=== PATIENT | female | born 2000 | race American Indian/Alaskan Native ===

== ENCOUNTER 2020-08-30 01:14 | Emergency (ER) | payer OTHER ==
[2020-08-30 01:31] VITALS: BP 133/66
--- NOTE | 2020-08-30 03:23 | XRay Report ---
EXAMINATION: Right shoulder radiograph, 2 views, 08/30/2020 CLINICAL INFORMATION: Right shoulder pain COMPARISON: None. FINDINGS: There is no evidence of acute fracture or dislocation of the right shoulder. No significant bony degenerative changes are noted. Signer Name: Jodee Rosen MD Signed: 08/30/2020 3:19 AM Workstation Name: [id number]
== END 2020-08-30 04:25 | disposition left against medical advice (07) ==
LOC: ED 01:14
DX: M25.511 Pain in right shoulder (principal); Z53.21 Procedure and treatment not carried out due to patient leaving prior to being seen by health care provider

== ENCOUNTER 2021-01-09 09:18 | Emergency (ER) | payer OTHER ==
[2021-01-09 09:34] VITALS: BP 133/79
--- NOTE | 2021-01-09 09:46 | Emergency Department Report ---
ED Chest Pain HPI - General Chief Complaint: Chest Pain Stated Complaint: CHEST PAIN, JOEL Time Seen by Provider: 01/09/21 09:33 Source: patient Mode of arrival: Ambulatory Limitations: No Limitations - History of Present Illness Initial Comments: 20-year-old -[place] female patient presents with complaints of right sided chest pain starting 3 days ago. She denies any shortness of breath and states the pain worsens with deep inhalation. She rates the pain as a 10/10 in severity. Pain also worsens with touch to the chest. Ibuprofen does relieve the pain. Patient does have children and does frequent heavy lifting. Pain is sharp in nature. She denies any shortness of breath, cough, hemoptysis, leg pain/swelling, recent long travel, or history of cancer. No family history of heart disease per patient. - Related Data Previous Rx's Medication Instructions Recorded Last Taken Type Naproxen 500 mg PO BID PRN #20 tablet 01/09/21 Unknown Rx methocarbamoL [Methocarbamol] 750 mg PO TID PRN #15 tablet 01/09/21 Unknown Rx predniSONE [Deltasone] 20 mg PO BID #4 tab 01/09/21 Unknown Rx Allergies Allergy/AdvReac Type Severity Reaction Status Date / Time No Known Allergies Allergy Verified 01/09/21 09:34 Heart Score - HEART Score History: Slightly suspicious EKG: Normal Age: < 45 Risk factors: No known risk factors Troponin: < normal limit HEART Score: 0 - EKG Read Time Time EKG Completed: 09:38 EKG Read Time: 09:40 ED Review of Systems ROS: Stated complaint: CHEST PAIN, JOEL Other details as noted in HPI Constitutional: denies: chills, diaphoresis, fever, malaise, weakness Respiratory: denies: cough, shortness of breath Cardiovascular: chest pain. denies: palpitations, edema, syncope Endocrine: denies: excessive sweating Gastrointestinal: denies: abdominal pain Musculoskeletal: denies: back pain Neurological: denies: headache Hematological/Lymphatic: denies: swollen glands ED Past Medical Hx - Past Medical History Previous Medical History?: No - Surgical History Past Surgical History?: No - Social History Smoking Status: Never Smoker Substance Use Type: None - Medications Home Medications: Home Medications Medication Instructions Recorded Confirmed Last Taken Type Naproxen 500 mg PO BID PRN #20 tablet 01/09/21 Unknown Rx methocarbamoL [Methocarbamol] 750 mg PO TID PRN #15 tablet 01/09/21 Unknown Rx predniSONE [Deltasone] 20 mg PO BID #4 tab 01/09/21 Unknown Rx ED Physical Exam - General Limitations: No Limitations General appearance: alert, in no apparent distress, obese - Head Head exam: Present: atraumatic, normocephalic - Eye Eye exam: Present: normal appearance - Neck Neck exam: Present: normal inspection, full ROM - Respiratory Respiratory exam: Present: chest wall tenderness (Tenderness to palpation noted to the right parasternal costochondral area without bruising or obvious deformity). Absent: respiratory distress - Cardiovascular Cardiovascular Exam: Present: regular rate, normal rhythm. Absent: systolic murmur, diastolic murmur, rubs, gallop - Extremities Exam Extremities exam: Absent: calf tenderness (No swelling or pain noted to legs bilaterally) - Back Exam Back exam: Present: full ROM - Neurological Exam Neurological exam: Present: alert, oriented X3, normal gait - Psychiatric Psychiatric exam: Present: normal affect, normal mood - Skin Skin exam: Present: warm, dry, intact, normal color. Absent: rash ED Course Vital Signs 01/09/21 09:29 Temperature 98.7 F Pulse Rate 88 Respiratory 18 Rate Blood Pressure 133/79 O2 Sat by Pulse 99 Oximetry ED Medical Decision Making - Lab Data Result diagrams: 01/09/21 09:41 01/09/21 09:40 Lab Results 01/09/21 01/09/21 Range/Units 09:40 09:41 WBC 7.2 (4.5-11.0) K/mm3 RBC 4.14 (3.65-5.03) M/mm3 Hgb 11.9 (10.1-14.3) gm/dl Hct 36.6 (30.3-42.9) % MCV 89 (79-97) fl MCH 29 (28-32) pg MCHC 33 (30-34) % RDW 13.5 (13.2-15.2) % Plt Count 393 (140-440) K/mm3 Lymph % (Auto) 22.5 (13.4-35.0) % [place] % (Auto) 6.5 (0.0-7.3) % Eos % (Auto) 4.0 (0.0-4.3) % Baso % (Auto) 0.3 (0.0-1.8) % Lymph # (Auto) 1.6 (1.2-5.4) K/mm3 [place] # (Auto) 0.5 (0.0-0.8) K/mm3 Eos # (Auto) 0.3 (0.0-0.4) K/mm3 Baso # (Auto) 0.0 (0.0-0.1) K/mm3 Seg Neutrophils % 66.7 (40.0-70.0) % Seg Neutrophils # 4.8 (1.8-7.7) K/mm3 Sodium 138 (137-145) mmol/L Potassium 3.8 (3.6-5.0) mmol/L Chloride 104.5 (98-107) mmol/L Carbon Dioxide 25 (22-30) mmol/L Anion Gap 12 mmol/L BUN 9 (7-17) mg/dL Creatinine 0.5 L (0.6-1.2) mg/dL Estimated GFR > 60 ml/min BUN/Creatinine Ratio 18 % Glucose 84 (65-100) mg/dL Calcium 8.7 (8.4-10.2) mg/dL Total Bilirubin 0.40 (0.1-1.2) mg/dL AST 11 (5-40) units/L ALT 10 (7-56) units/L Alkaline Phosphatase 87 (35-129) units/L Troponin T < 0.010 (0.00-0.029) ng/mL Total Protein 6.8 (6.3-8.2) g/dL Albumin 3.6 L (3.9-5) g/dL Albumin/Globulin Ratio 1.1 % - EKG Data EKG shows normal: sinus rhythm Rate: normal - EKG Data Interpretation: normal EKG - Radiology Data Radiology results: report reviewed CHEST PA AND LATERAL VIEWS INDICATION: right parasternal chest pain. COMPARISON: None. FINDINGS: Support devices: None. Heart: Within normal limits. Lungs/Pleura: No acute pulmonary or pleural findings. IMPRESSION: 1. No acute findings. - Medical Decision Making 31-year-old -[place] female patient presents with complaints of left hand pain after a FOOSH injury today. She rates her pain as a 10/10 in severity and denies trying any OTC medications prior to arrival. She reports difficulty moving the thumb, but denies any numbness/tingling or weakness in her hand. Heart score = 0. Labs are normal. Chest x-ray is normal. Will treat for costochondritis with NSAIDs and muscle relaxers. Recommend icing also. Patient to follow-up primary care doctor in 3 days. Her vitals are normal, she is well-appearing, she is stable for discharge home. Strict return precautions were discussed in great detail with patient who verbalizes understanding. Critical care attestation.: If time is entered above; I have spent that time in minutes in the direct care of this critically ill patient, excluding procedure time. ED Disposition Clinical Impression: Costochondritis, acute Disposition: DC-01 TO HOME OR SELFCARE Is pt being admited?: No Condition: Stable Instructions: Costochondritis Prescriptions: predniSONE [Deltasone] 20 mg PO BID #4 tab methocarbamoL [Methocarbamol] 750 mg PO TID PRN #15 tablet PRN Reason: muscle spasm/tightness Naproxen 500 mg PO BID PRN #20 tablet PRN Reason: pain Referrals: PRIMARY CARE, [Primary Care Provider] - 3-5 Days [facility] [Provider Group] - 3-5 Days Forms: Work/School Release Form(ED)
[2021-01-09 10:30] LABS: Basophils % (Auto) 0.3 % (0.0-1.8); Eosinophils # (Auto) 0.3 K/mm3 (0.0-0.4); Hematocrit 36.6 % (30.3-42.9); Hemoglobin 11.9 gm/dl (10.1-14.3); Lymphocytes # (Auto) 1.6 K/mm3 (1.2-5.4); Lymphocytes % (Auto) 22.5 % (13.4-35.0); Mean Corpuscular HGB Conc 33 % (30-34); Mean Corpuscular Volume 89 fl (79-97); Monocytes # (Auto) 0.5 K/mm3 (0.0-0.8); Monocytes % (Auto) 6.5 % (0.0-7.3); Platelet Count 393 K/mm3 (140-440); Red Blood Count 4.14 M/mm3 (3.65-5.03); Red Cell Distribution Width 13.5 % (13.2-15.2)
--- NOTE | 2021-01-09 10:37 | XRay Report ---
CHEST PA AND LATERAL VIEWS INDICATION: right parasternal chest pain. COMPARISON: None. FINDINGS: Support devices: None. Heart: Within normal limits. Lungs/Pleura: No acute pulmonary or pleural findings. IMPRESSION: 1. No acute findings. Signer Name: Roderick Romero MD Signed: 01/09/2021 10:33 AM Workstation Name: [id number]
[2021-01-09 10:47] LABS: Alanine Aminotransferase 10 units/L (7-56); Albumin 3.6 g/dL (3.9-5); Blood Urea Nitrogen 9 mg/dL (7-17); Calcium 8.7 mg/dL (8.4-10.2); Hemolysis Index 6
[2021-01-09 10:53] LABS: BUN/Creatinine Ratio 18
--- NOTE | 2021-01-10 10:48 | Electrocardiograph Report ---
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
== END 2021-01-09 11:56 | disposition home or self-care (01) ==
LOC: ED 09:18
DX: M94.0 Chondrocostal junction syndrome [Tietze] (principal); Z79.899 Other long term (current) drug therapy
CPT/HCPCS: 36415; 71046; 80053; 84484; 85025; 93005